=== PATIENT | male | born 1985 | race Caucasian/White ===

== ENCOUNTER 2016-04-27 14:02 | Emergency (ER) | payer OTHER | END 2016-04-27 15:11 | disposition home or self-care (01) | LOC: ER 14:02 | DX: T40.601A Poisoning by unspecified narcotics, accidental (unintentional), initial encounter (principal); F17.210 Nicotine dependence, cigarettes, uncomplicated; V49.40XA Driver injured in collision with unspecified motor vehicles in traffic accident, initial encounter | CPT/HCPCS: 36415; 96374; G0480 ==